=== PATIENT | female | born 1950 | race Caucasian/White ===

== ENCOUNTER → 2019-03-10 19:00 | Outpatient (ROUT) | payer OTHER, MEDICARE, SELFPAY ==
[2019-03-10 19:06] LABS: Add Manual Diff / Slide Review NO; Basophils Absolute Auto 0 /uL (0-100); Basophils Percent Auto 0.5 % (0-2); Eosinophils Absolute Auto 100 /uL (0-450); Hematocrit 38.7 % (36-46); Hemoglobin 13.4 g/dL (12.0-16.0); Lymphocytes Absolute Auto 1700 /uL (1100-4500); Lymphocytes Percent Auto 16.8 % (25-40); Mean Corpuscular HGB Conc 34.5 % (30-36); Mean Corpuscular Hemoglobin 30.7 PG (26-34); Monocytes Absolute Auto 1000 /uL (0-900); Monocytes Percent Auto 10.2 % (3-14); Neutrophils Absolute Auto 7200 /uL (1500-7000); Neutrophils Percent Auto 71.5 % (50-75); Platelet Count 237 X10^3/uL (150-400); Red Blood Cell Count 4.35 X10^6/uL (4.0-5.2); Red Cell Distribution Width 12.8 % (11.6-14.8)
[2019-03-10 19:21] LABS: Alanine Aminotransferase 63 IU/L (9-52); Albumin 3.9 g/dL (3.5-5.0); Albumin Globulin Ratio 1.3 (1.0-2.8); Alkaline Phosphatase 92 U/L (38-126); Aspartate Aminotransferase 75 IU/L (14-36); BUN Creatinine Ratio 11.7 (6-22); Bilirubin Total 0.5 mg/dL (0.2-1.3); Blood Urea Nitrogen 7 mg/dL (7-17); Calcium 9.1 mg/dL (8.4-10.2); Carbon Dioxide 25 mmol/L (22-32); Chloride 98 mmol/L (98-107); Creatine Kinase 43 U/L (30-135); Estimated Glomerular Filt Rate > 60.0 mL/min (>60); Globulin 2.9 g/dL (1.7-4.1); Glucose 132 mg/dL (80-110); HEMOLYSIS < 15 (0-50); Sodium 138 mmol/L (137-145); Total Protein 6.8 g/dL (6.3-8.2)
[2019-03-10 19:37] LABS: C-Reactive Protein Quant 21.2 mg/dL (<1.0)
[2019-03-10 19:38] LABS: Erythrocyte Sedimentation Rate 61 MM/HR (0-20)
== END ==
DX: T84.53XA Infection and inflammatory reaction due to internal right knee prosthesis, initial encounter (principal)
CPT/HCPCS: 80053; 82550; 85025; 85651; 86140

== ENCOUNTER → 2022-11-21 11:51 | Outpatient (CLI) | payer OTHER, MEDICARE, SELFPAY ==
--- NOTE | 2022-11-21 | DI.MRI.S_ITS ---
PROCEDURE: MR HIP LT WO CON INDICATIONS: presence of left artificial hip joint TECHNIQUE: Noncontrast coronal T1 spin echo and STIR through the bony pelvis. Coronal and axial T2 fast spin echo with fat saturation, sagittal T1 spin echo, and oblique axial T2 fast spin echo with fat saturation through the hip. COMPARISON: None. FINDINGS: Image quality: Diagnostic. Significant susceptibility artifacts are noted from bilateral hip prosthesis. Bones and joints: Patient is status post bilateral total hip arthroplasty with significant susceptibility artifacts. There is no gross marrow edema. No acute fracture or dislocation. No suspicious bony lesions. Tendons and ligaments: There is left distal gluteus medius and minimus tendinosis at their insertion on greater trochanter, without associated muscle atrophy. The nearby proximal iliotibial band also appears intact. The iliopsoas tendon appears intact, without adjacent bursal fluid collections or evidence for impingement syndrome. The origin of the hamstring tendon is intact at the ischial tuberosity, as well as the associated sacrotuberous ligament. The straight and reflected heads of the rectus femoris muscle origin appear intact, as well as the conjoint tendon. Soft tissues: Visualized muscles demonstrate normal bulk and internal signal. Quadratus femoris muscle demonstrates no internal edema to suggest ischiofemoral impingement. The proximal sciatic neurovascular bundle appears normal adjacent to the hamstring tendons. No free pelvic fluid. Bladder wall thickness is normal. Genitourinary structures and bowel loops appear normal where visualized. IMPRESSION: 1. 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 No gross marrow edema. No acute fracture or dislocation. No suspicious bony lesions. 2. Left distal gluteus medius and minimus tendinosis at their insertions on greater trochanter. No other muscle or tendon signal abnormality is seen. 3. No gross pelvic or hip soft tissue abnormalities. Dictated by: Juan Neumann M.D. on 11/21/2022 at 13:49 Approved by: Juan Neumann M.D. on 11/21/2022 at 13:54
== END ==
PROVIDERS: PCP Family Medicine; Referring Provider Orthopaedic Surgery; Visit Provider Orthopaedic Surgery
DX: Z09 Encounter for follow-up examination after completed treatment for conditions other than malignant neoplasm (principal); Z96.643 Presence of artificial hip joint, bilateral
CPT/HCPCS: 73721

== ENCOUNTER → 2023-02-27 12:45 | Outpatient (CLI) | payer OTHER, MEDICARE, SELFPAY ==
--- NOTE | 2023-02-27 | DI.MRI.S_ITS ---
PROCEDURE: MR SHOULDER LT W CON INDICATIONS: LEFT SHOULDER PAIN TECHNIQUE: After the administration of 12 mL of dilute intra-articular Gadolinium contrast, oblique coronal T1 and T2 spin echo with fat saturation, oblique sagittal T1 spin echo with and without fat saturation, oblique sagittal T2 fast spin echo with fat saturation, axial T1 spin echo with fat saturation through the shoulder. COMPARISON: None. FINDINGS: Image quality: Excellent. Rotator cuff: Moderate to high-grade articular surface partial-thickness tear involving distal supraspinatus at its insertion on the humeral head is seen extending to musculotendinous junction. Low to moderate grade articular surface partial-thickness tear involving distal infraspinatus is also seen. Low-grade partial-thickness tear is also noted in superior fibers of distal subscapularis. No definite full-thickness rotator cuff tendon rupture. Mild supraspinatus muscle atrophy is seen on sagittal images. Bones and bursae: No bone marrow contusions or fractures. [id number] acromioclavicular joint osteoarthritic changes are seen with joint space narrowing and downward osteophyte formation depressing on musculotendinous junction of supraspinatus. Moderate glenohumeral joint osteoarthritic changes also noted with joint space narrowing and inferior marginal osteophyte formation. Capsule and soft tissues: There is signal abnormality, contour irregularity and fraying of inferior labrum extending from 5-7 o'clock position suggestive of extensive inferior labral tear. Subtle signal abnormality and contrast extension involving superior anterior labrum at 1 to 2 o'clock position is also noted. Extensive signal abnormality is also seen involving posterior labrum with contour irregularity at 8 to 9 o'clock position. The glenohumeral ligaments appear intact. The long head of the biceps tendon demonstrates normal location and morphology. The rotator interval appears normal, without fibrosis. The coracohumeral ligament is of normal thickness. No intra-articular bodies. IMPRESSION: 1. Moderate to high-grade articular surface partial-thickness tear involving distal supraspinatus extending to musculotendinous junction. Low to moderate grade articular surface partial-thickness tear involving distal infraspinatus. Low-grade partial-thickness tear involving superior fibers of distal subscapularis. No definite full-thickness rotator cuff tendon rupture. Mild supraspinatus muscle atrophy. 2. [id number] acromioclavicular joint osteoarthritis and moderate glenohumeral joint osteoarthritis. No acute fracture or dislocation. No gross loose bodies. 3. Suggestion of subtle superior anterior labral tear at 1 to 2 o'clock position. Suggestion of posterior inferior labral tear at 8 to 9 o'clock position and inferior labral tear at 5 to 7 o'clock position. Dictated by: Juan Neumann M.D. on 02/27/2023 at 16:18 Approved by: Juan Neumann M.D. on 02/27/2023 at 16:27
--- NOTE | 2023-02-27 | DI.RAD.S_ITS ---
PROCEDURE: FL SHOULDER INJECTION MR/CT LT INDICATIONS: LEFT SHOULDER PAIN COMPARISON: None. TECHNIQUE: The indications, alternatives, benefits, risks, and complications of the procedure were explained to the patient. Written informed consent was obtained and placed in the chart. The shoulder was examined fluoroscopically and a site for needle placement chosen for entry into the glenohumeral joint from an anterior approach. The skin was prepped and draped in a sterile fashion, and 1% lidocaine infiltrated from skin down to joint capsule. A spinal needle was inserted into the glenohumeral joint, and a small amount of iodinated contrast media injected to confirm intra-articular placement of the needle tip. This was followed by approximately 12 mL dilute solution of a gadolinium containing MR contrast agent. The needle was removed and a dressing was applied. The patient was given postprocedural instructions and sent to the MR suite for MR imaging. FINDINGS: A single fluoroscopic spot image demonstrates intra-articular location of injected iodinated contrast. IMPRESSION: Successful fluoroscopically guided administration of dilute Gadolinium solution into the shoulder joint for MR arthrogram. Dictated by: Peter Wynne M.D. on 02/27/2023 at 16:15 Approved by: Peter Wynne M.D. on 02/27/2023 at 16:15
[2023-02-27] MEDS: SODIUM CHLORIDE 0.9 % 20 ML VIAL IV (14:42)
[2023-02-27] MEDS: LIDOCAINE 1% 20 ML INJ (14:42)
== END ==
PROVIDERS: PCP Family Medicine; Referring Provider Student in an Organized Health Care Education/Training Program; Visit Provider Student in an Organized Health Care Education/Training Program
DX: M75.112 Incomplete rotator cuff tear or rupture of left shoulder, not specified as traumatic (principal); M19.012 Primary osteoarthritis, left shoulder; M25.512 Pain in left shoulder
CPT/HCPCS: 23350; 73222

== ENCOUNTER → 2023-04-07 08:50 | Outpatient (CLI) | payer OTHER, MEDICARE, SELFPAY ==
--- NOTE | 2023-04-07 08:55 | DI.RAD.S_ITS ---
PROCEDURE: XR CHEST 2V INDICATIONS: COUGH TECHNIQUE: 2 views of the chest were acquired. COMPARISON: None. FINDINGS: Surgical changes and devices: Cholecystectomy clips. Lungs and pleura: Lungs are clear. No pleural effusions or pneumothorax. Mediastinum: Mediastinal contours are normal. Heart size is normal. Bones and chest wall: No suspicious bony abnormalities. Soft tissues appear unremarkable. IMPRESSION: No acute cardiopulmonary abnormality is seen. Dictated by: Suki Lam M.D. on 04/07/2023 at 15:11 Approved by: Suki Lam M.D. on 04/07/2023 at 15:11
== END ==
PROVIDERS: PCP Family Medicine; Referring Provider Student in an Organized Health Care Education/Training Program; Visit Provider Student in an Organized Health Care Education/Training Program
DX: R05.9 Cough, unspecified (principal)
CPT/HCPCS: 71046

== ENCOUNTER → 2024-12-03 15:04 | Outpatient (CLI) | payer MEDICARE, OTHER, SELFPAY ==
--- NOTE | 2024-12-03 15:07 | DI.RAD.S_ITS ---
PROCEDURE: XR DEXA AXIAL SKELETON INDICATIONS: SCREENING COMPARISON: None. FINDINGS: Lumbar Spine: Bone mineral density 0.862 g/cm2, T score -1.7. Left Forearm: Bone mineral density 0.660 g/cm2, T score -0.6. (T score greater or equal to -1.0 to: NORMAL) (T score from -1.1 to -2.4: OSTEOPENIA) (T score less than or equal to -2.5: OSTEOPOROSIS) IMPRESSION: Osteopenia--- recommend repeat DEXA in 2-3 years for reassessment. Follow-up guidelines as follows: Osteoporosis: Consider a repeat DEXA and Vertebral Fracture Assessment (VFA) exam in 2 years or sooner if medically necessary, to reassess this patient's status. Osteopenia: Consider a repeat DEXA in 2-3 years to reassess this patient's status, or if there is a new clinical indication. Normal: Consider a repeat DEXA in 5 years or sooner, or if there is a new clinical indication. All treatment decisions require clinical judgment and consideration of individual patient factors, including patient preferences, comorbidities, previous drug use, risk factors not captured in the FRAX model (e.g., frailty, falls, vitamin D deficiency, increased bone turnover, interval significant decline in bone density ) and possible under- or over-estimation of fracture risk by FRAX. In addition, the NOF Guide recommends that FDA-approved medical therapies be considered in postmenopausal women and men age >= 50 years with a: * Hip or vertebral (clinical or morphometric) fracture * T-score of <=-2.5 at the spine or hip * Ten-year fracture probability by FRAX of >= 3% for hip fracture or >=20% for major osteoporotic fracture. Dictated by: Fredrick Montana M.D. on 12/03/2024 at 19:19 Approved by: Fredrick Montana M.D. on 12/03/2024 at 19:21
== END ==
LOC: RAD 15:06
DX: M85.88 Other specified disorders of bone density and structure, other site (principal); Z78.0 Asymptomatic menopausal state
CPT/HCPCS: 77080; 77081